=== PATIENT | male | born 1970 | race Caucasian/White ===

== ENCOUNTER 2019-01-29 10:27 | Outpatient (CLI) | payer OTHER ==
--- NOTE | 2019-01-29 15:15 | XRAY Report ---
Reason: ACUTE LOW BACK PAIN Procedure Date: 01/29/2019 Accession Number: [id number] / [id number] Procedure: XR - Abdomen 1 View X-Ray CPT Code: 61672 Final Report FULL RESULT: EXAM: ABDOMEN RADIOGRAPHY EXAM DATE: 01/29/2019 11:01 AM. CLINICAL HISTORY: Acute low back pain. COMPARISON: None. TECHNIQUE: 1 view. FINDINGS: Bowel Gas Pattern: Within normal limits. No dilated loops. Other: None. IMPRESSION: Nonobstructive bowel gas pattern and no definite abnormal calcifications in the kidney regions. RADIA
--- NOTE | 2019-01-29 15:17 | XRAY Report ---
Reason: LOW BACK PAIN Procedure Date: 01/29/2019 Accession Number: [id number] / [id number] Procedure: XR - ThoracoLumbar 2 View CPT Code: 75942 Final Report FULL RESULT: EXAM: LUMBOSACRAL SPINE RADIOGRAPHY EXAM DATE: 01/29/2019 11:00 AM. CLINICAL HISTORY: Low back pain. COMPARISONS: XR LUMBAR SPINE 2 OR 3 VIEWS 10/14/2010 1:00 PM. TECHNIQUE: 2 views. FINDINGS: Alignment: Normal. No spondylolisthesis or scoliosis. Bones: Five [id number]-[id number] lumbar vertebral bodies are present. No fractures or bone lesions. Disks: Normal. Disk heights are maintained. Facets: There is mild facet arthropathy at L5. Sacroiliac Joints: Unremarkable. Soft Tissues: Normal. The visualized bowel gas pattern is normal. IMPRESSION: Mild facet arthropathy at L5. RADIA
== END 2019-01-29 10:28 | disposition home or self-care (01) ==
LOC: DI 10:27
PROVIDERS: ATTEND Registered Nurse
DX: M47.816 Spondylosis without myelopathy or radiculopathy, lumbar region (principal)
CPT/HCPCS: 72080; 74018

== ENCOUNTER 2019-02-10 14:52 | Outpatient (CLI) | payer OTHER ==
[2019-02-10] MEDS ORDERED: IOVERSOL 320 100 ML VIAL IVP ONE (14:56)
--- NOTE | 2019-02-10 16:00 | CT Report ---
Reason: BLIATERAL LOW BACK PAIN Procedure Date: 02/10/2019 Accession Number: [id number] / [id number] Procedure: CT - Abdomen/Pelvis WO CPT Code: Final Report FULL RESULT: EXAM: CT ABDOMEN AND PELVIS (CT KUB) EXAM DATE: 02/10/2019 03:35 PM. CLINICAL HISTORY: Bilateral low back pain. COMPARISONS: None. TECHNIQUE: Routine axial helical CT imaging was performed through the abdomen and pelvis without IV contrast. Reconstructions: Coronal and sagittal. In accordance with CT protocol optimization, one or more of the following dose reduction techniques were utilized for this exam: automated exposure control, adjustment of mA and/or KV based on patient size, or use of iterative reconstructive technique. FINDINGS: Lung Bases: Unremarkable. Right Kidney/Ureter: No stones, hydronephrosis, or hydroureter. No perinephric fat stranding. Left Kidney/Ureter: No stones, hydronephrosis, or hydroureter. No perinephric fat stranding. Other Solid Organs: The noncontrast liver, spleen, adrenal glands, pancreas are unremarkable with the exception of bilateral subcentimeter hepatic hypodensities which are not characterized on this study and likely too small to characterize. Gallbladder/Bile Ducts: Unremarkable. Peritoneal Cavity: No free fluid, free air or gregory adenopathy. Bowel is grossly unremarkable. Pelvic Organs: No bladder stones or wall thickening. Noncontrast images of the visualized pelvic organs are unremarkable. Vasculature: Unremarkable. Other: None. IMPRESSION: No urinary tract stones or obstruction. RADIA
== END 2019-02-10 14:53 | disposition home or self-care (01) ==
LOC: DI 14:52
PROVIDERS: ATTEND Registered Nurse
DX: M54.5 Low back pain (principal)
CPT/HCPCS: 74176

== ENCOUNTER 2022-04-15 11:36 | Outpatient (CLI) | payer OTHER ==
--- NOTE | 2022-04-15 17:13 | CT Report ---
PROCEDURE: Low Dose Lung Cancer Screen INDICATIONS: NICOTINE DEPENDENCE TECHNIQUE: Noncontrast low-dose axial images were acquired from the pulmonary apices to the posterior costophren ic angles. Multiplanar MIP reformats were then reconstructed. For radiation dose reduction, the follo wing was used: automated exposure control, adjustment of mA and/or kV according to patient size. COMPARISON: None. FINDINGS: Image quality: Excellent. Lungs and pleura: 2 mm solid nodule in posterior medial right upper lobe series 4 image 100. 2 mm solid nodule in posterior medial right lower lobe series 4 image 147. No other pulmonary nodule is seen. No focal infiltrate, pleural effusion or pneumothorax. Central and peripheral airway is patent. Mediastinum: Heart size is normal. No pericardial effusion. No mediastinal adenopathy by size crit eria. Thoracic aorta and central pulmonary arteries are normal in size. Esophagus is normal in marky deya. No hiatal hernia. Bones and chest wall: No suspicious bony lesions. No vertebral body compression fractures. No axil pedro or supraclavicular adenopathy by size criteria. The thyroid is normal in size and there are no incidental findings. Abdomen: Visualized upper abdomen solid organs and bowel loops appear normal in the absence of contr ast. IMPRESSION: 1. Tiny 2 mm nodules in right upper and lower lobe as above. No other pulmonary nodule is seen. Lung RADS category: 2, benign findings. Annual low-dose screening CT chest follow-up is recommended a s well as patient meets the criteria. 2. No mediastinal or hilar lymphadenopathy. No significant atherosclerotic disease. CLINICAL RECOMMENDATION STATEMENTS: In patients <35 years with an ITN detected on CT, MRI, or extrathyroidal ultrasound, the Committee re commends further evaluation with dedicated thyroid ultrasound if the nodule is "e1 cm and has no susp icious imaging features, and if the patient has normal life expectancy. In patients "e35 years with an ITN detected on CT, MRI, or extrathyroidal ultrasound, the Committee r ecommends further evaluation with dedicated thyroid ultrasound if the nodule is "e1.5 cm and has no s uspicious imaging features, and if the patient has normal life expectancy. (ACR, 2014) Reviewed by: Cosme Linares MD on 04/15/2022 5:11 PM PST Approved by: Cosme Linarse MD on 04/15/2022 5:11 PM PST Station ID: [id number]
== END 2022-04-15 11:37 | disposition home or self-care (01) ==
LOC: DI 11:36
PROVIDERS: ATTEND Nurse Practitioner Family
DX: Z12.2 Encounter for screening for malignant neoplasm of respiratory organs (principal); R91.8 Other nonspecific abnormal finding of lung field; F17.200 Nicotine dependence, unspecified, uncomplicated